=== PATIENT | male | born 1990 | race Two or more races ===

== ENCOUNTER 2024-03-13 02:09 | Inpatient (IN) | payer MEDICAID, OTHER ==
[~2024-03-13] VITALS: Ht 170.2 cm; Wt 111.2 kg
[2024-03-13 07:32] LABS: Basophils # (auto) 0 10 ^3/uL (0-0.2); Basophils % (auto) 0.3 % (0.0-2.0); Eosinophils # (auto) 0.1 10 ^3/uL (0-0.8); Eosinophils % (auto) 1.4 % (0.0-7.0); Hematocrit 45.6 % (41.0-53.0); Hemoglobin 15.6 g/dL (13.5-17.5); Lymphocytes % (auto) 22.9 % (10.0-50.0); Mean Corpuscular Hemoglobin 30.2 pg (28.0-32.0); Mean Corpuscular Hgb Conc. 34.1 g/dL (32.0-36.0); Mean Corpuscular Volume 88.3 fL (80.0-100.0); Monocytes # (auto) 1.1 10 ^3/uL (0-1.3); Neutrophils # (auto) 5.5 10 ^3/uL (1.6-8.6); Neutrophils % (auto) 62.4 % (37.0-80.0); Nucleated Red Blood Cells % 0.1 %; Red Blood Cells 5.17 10^6/uL (4.5-5.90); Red Cell Distribution Width 13.3 % (11.8-14.3); White Blood Cell 8.8 10^3/uL (4.4-10.8)
[2024-03-13 07:35] LABS: Anion Gap 9 (5-15); Carbon Dioxide 26 mmol/L (20-30); Chloride 104 mmol/L (98-107); Potassium 4.4 mmol/L (3.5-5.1); Sodium 139 mmol/L (136-145)
[2024-03-13 07:36] LABS: Calcium 9.5 mg/dL (8.7-10.4)
[2024-03-13 07:41] LABS: BUN/Creatinine Ratio 13.7 (10.0-20.0); Blood Urea Nitrogen 13 mg/dL (9-23); Glucose 118 mg/dL (74-106)
[2024-03-13] MEDS: cefTRIAXone 1GM/50ML D5W 50 ML IV ONE (08:09)
[2024-03-13] MEDS: MORPHINE SULFATE INJ 2 MG/ml SYRG IV ONE (08:10)
[2024-03-13] MEDS: ONDANSETRON HCL 4 MG/2 ML VIAL IV ONE (08:10)
[2024-03-13] MEDS: SODIUM CHLORIDE 0.9% 1,000 ML IV ONE ×2 (08:11→08:12)
[2024-03-13] MEDS: CLINDAMYCIN 600MG IV 50 ML IV ONE (08:12)
[2024-03-13 08:20] VITALS: PULSE 71; RESP 16; O2SAT 97
[2024-03-13] MEDS ORDERED: MORPHINE SULFATE INJ 2 MG/ml SYRG IV PRN (09:00)
[2024-03-13] MEDS ORDERED: DOCUSATE SOD 100 MG CAP PO PRN (09:00)
[2024-03-13] MEDS ORDERED: ONDANSETRON HCL 4 MG/2 ML VIAL IV PRN (09:00)
[2024-03-13] MEDS: DOXYCYCLINE 100MG/250ML 250 ML IV ONE (10:10)
[2024-03-13] MEDS: SODIUM CHLORIDE 0.9% 1,000 ML IV SCH (10:11)
[2024-03-13 14:10] VITALS: BP 96/50; PULSE 49; RESP 20; TEMP 98; O2SAT 94
[2024-03-13 17:00] VITALS: BP 103/53; PULSE 71; RESP 20; TEMP 97.6; O2SAT 94
[2024-03-13 20:00] VITALS: BP 117/66; PULSE 65; PULSE 78; RESP 18; RESP 19; TEMP 97.3; O2SAT 95
[2024-03-13 21:00] VITALS: BP 113/51; PULSE 71; RESP 19; TEMP 97.5; O2SAT 97
[2024-03-13] MEDS: DOXYCYCLINE 100MG/250ML 250 ML IV SCH (21:38)
[2024-03-14 01:00] VITALS: BP 117/66; PULSE 65; RESP 19; TEMP 97.5; O2SAT 95
[2024-03-14 05:00] VITALS: BP 99/65; PULSE 55; RESP 17; TEMP 97.4; O2SAT 100
[2024-03-14 07:07] LABS: Basophils # (auto) 0 10 ^3/uL (0-0.2); Basophils % (auto) 0.3 % (0.0-2.0); Eosinophils # (auto) 0.2 10 ^3/uL (0-0.8); Eosinophils % (auto) 2.7 % (0.0-7.0); Hematocrit 45.5 % (41.0-53.0); Hemoglobin 15.5 g/dL (13.5-17.5); Lymphocytes # (auto) 2.7 10 ^3/uL (0.4-5.4); Lymphocytes % (auto) 36.7 % (10.0-50.0); Mean Corpuscular Volume 88.3 fL (80.0-100.0); Monocytes # (auto) 1.1 10 ^3/uL (0-1.3); Monocytes % (auto) 14.7 % (0.0-12.0); Neutrophils # (auto) 3.4 10 ^3/uL (1.6-8.6); Neutrophils % (auto) 45.6 % (37.0-80.0); Nucleated Red Blood Cells % 0.2 %; Red Blood Cells 5.15 10^6/uL (4.5-5.90); Red Cell Distribution Width 13.4 % (11.8-14.3); White Blood Cell 7.4 10^3/uL (4.4-10.8)
[2024-03-14 07:26] LABS: Alkaline Phosphatase 53 U/L (46-116); Anion Gap 6 (5-15); BUN/Creatinine Ratio 7.6 (10.0-20.0); Blood Urea Nitrogen 7 mg/dL (9-23); Calcium 9.3 mg/dL (8.7-10.4); Carbon Dioxide 28 mmol/L (20-30); Chloride 107 mmol/L (98-107); Glucose 112 mg/dL (74-106); Potassium 4.7 mmol/L (3.5-5.1); Sodium 141 mmol/L (136-145)
[2024-03-14 07:27] LABS: Albumin 4.2 g/dL (3.2-4.8); Aspartate Aminotransferase 16 U/L (13-40)
[2024-03-14 07:28] LABS: Bilirubin, Total 0.4 mg/dL (0.2-1.0); Total Protein 6.9 g/dL (5.7-8.2)
[2024-03-14 07:40] LABS: Alanine Aminotransferase 9 U/L (7-40)
[2024-03-14 08:20] VITALS: BP 117/74; PULSE 62; RESP 18; TEMP 97.8
[2024-03-14 09:00] VITALS: BP 117/74; PULSE 62; RESP 18; TEMP 97.8; O2SAT 97
[2024-03-14 12:00] VITALS: BP 111/60; PULSE 69; RESP 16; TEMP 98.5; O2SAT 96
[2024-03-14] MEDS ORDERED: LEVO500T91 PO (13:19)
[2024-03-14 16:03] VITALS: BP 111/60; PULSE 69; RESP 16; TEMP 98.5; O2SAT 96
== END 2024-03-14 16:32 | disposition home or self-care (01) | DRG 254 ==
LOC: ER 02:09 → OVERFLOW 10:40 → CENTRAL 14:00
PROVIDERS: ADMIT Internal Medicine; ATTEND Internal Medicine
DX: K61.0 Anal abscess (principal); K62.89 Other specified diseases of anus and rectum; L03.317 Cellulitis of buttock; L05.01 Pilonidal cyst with abscess
CPT/HCPCS: 36415; 72192; 74176; 80048; 80053; 85025; 96365; 96367; 96368; 96375; G0378; J2405; J3490

== ENCOUNTER 2025-08-30 16:06 | Emergency (ER) | payer SELFPAY ==
[~2025-08-30] VITALS: Ht 170.2 cm; Wt 109.6 kg
[~2025-08-30 16:06] MED LIST: LEVO500T91 PO
[2025-08-30 17:33] LABS: Hematocrit 47.1 % (41.0-53.0); Hemoglobin 16.2 g/dL (13.5-17.5); Mean Corpuscular Hemoglobin 30.4 pg (28.0-32.0); Mean Corpuscular Volume 88.1 fL (80.0-100.0); Nucleated Red Blood Cells % 0.0 %
--- NOTE | 2025-08-30 17:41 | ED.PDOC ---
History of Present Illness HPI Comments 35-year-old male presents to the ER with the chief complaint of an abscess to the rectum. Patient reports on having the abscess on the left rectum which is painful and the patient is unable to sit due from the pain. Patient notes that the abscess has been reoccurring for the past year, w/ the most recent being three months ago and is always given antibiotics for it. Denies any other symptoms at this time. Chief Complaint: Abscess Time Seen by MD: 17:30 Reviewed Notes: Nurses Notes, Medications, Allergies Allergies: Coded Allergies: NO KNOWN ALLERGIES (Unverified , 03/13/24) Home Meds Active Scripts Levofloxacin Hemihydrate (LEVOFLOXACIN) 500 Mg Tab, 1 TAB PO DAILY, #7 TAB Prov:TRACY SOSA DO 03/14/24 Information Source: Patient Mode of Arrival: Ambulatory Severity: Moderate Timing: Months Duration: Since onset Prehospital treatment: None Past Medical History PAST MEDICAL HISTORY: Denies Past Medical History (Other): Reoccurring rectum abscess Surgical History: Denies all surgeries Family History Family History: Reviewed,noncontributory to illness, Unknown Social History Smoker: Non-Smoker Alcohol: Denies ETOH Use Drugs: Denies Drug Use Lives In: Home Constitutional: denies: chills, diaphoresis, fatigue, fever, malaise, sweats, weakness, others EENTM: denies: blurred vision, double vision, ear bleeding, ear discharge, ear drainage, ear pain, ear ringing, eye pain, eye redness, hearing loss, mouth pain, mouth swelling, nasal discharge, nose bleeding, nose congestion, nose pain, photophobia, tearing, throat pain, throat swelling, voice changes, others Respiratory: denies: cough, hemoptysis, orthopnea, SOB at rest, shortness of breath, SOB with excertion, stridor, wheezing, others Cardiovascular: denies: chest pain, dizzy spells, diaphoresis, Dyspnea on exertion, edema, irregular heart beat, left arm pain, lightheadedness, palpitations, PND, syncope, others Gastrointestinal: denies: abdomen distended, abdominal pain, blood streaked bowels, constipated, diarrhea, dysphagia, difficulty swallowing, hematemesis, melena, nausea, poor appetite, poor fluid intake, rectal bleeding, rectal pain, vomiting, others Genitourinary: denies: burning, dysuria, flank pain, frequency, hematuria, incontinence, penile discharge, penile sore, pain, testicle pain, testicle swelling, urgency, others Neurological: denies: dizziness, fainting, headache, left sided numbness, left sided weakness, numbness, paresthesia, pre-existing deficit, right sided numbness, right sided weakness, seizure, speech problems, tingling, tremors, weakness, others Musculoskeletal: denies: back pain, gout, joint pain, joint swelling, muscle pain, muscle stiffness, neck pain, others Integumetry: reports: others (Rectum abscess); denies: bruises, change in color, change in hair/nails, dryness, laceration, lesions, lumps, rash, wounds Allergic/Immunocompromised: denies: Difficulty Healing, Frequent Infections, Hives, Itching, others Hematologic/Lymphatic: denies: anemia, blood clots, easy bleeding, easy bruising, swollen glands, others Endocrine: denies: excessive hunger, excessive sweating, excessive thirst, excessive urination, flushing, intolerance to cold, intolerance to heat, unexplained weight gain, unexplained weight loss, others Psychiatric: denies: anxiety, bipolar disorder, depression, hopeless, panic disorder, schizophrenia, sleepless, suicidal, others All Other Systems: Reviewed and Negative Physical Exam General Appearance: No Apparent Distress, Normal HEENT: Normal ENT Inspection, Pharynx Normal, TMs Normal Neck: Full Range of Motion, Non-Tender, Normal, Normal Inspection Respiratory: Chest Non-Tender, Lungs Clear, No Accessory Muscle Use, No Respiratory Distress, Normal Breath Sounds Cardiovascular: No Edema, No JVD, No Murmur, No Gallop, Normal Peripheral Pulses, Regular Rate/Rhythm Breast Exam: Deferred Gastrointestinal: No Organomegaly, Non Tender, No Pulsatile Mass, Normal Bowel Sounds, Soft Genitalia: Deferred Pelvic: Deferred Rectal: Other (Tender to palpation over the left side rectum. There is an indurated area with redness.) Extremities: No calf tenderness, Normal capillary refill, Normal inspection, Normal range of motion, Non-tender, No pedal edema Musculoskeletal : Apperance: Normal Neurologic: Alert, wire photo operator II-XII nml as Tested, No Motor Deficits, Normal Affect, Normal Mood, No Sensory Deficits Cerebellar Function: Normal Reflexes: Normal Skin: Dry, Normal Color, Warm Lymphatic: No Adenopathy Was a procedure done? Was a procedure done?: No Differential Dx Considerations may include: Reoccurring rectum abscess X-Ray, Labs, Meds, VS Vital Signs Date Time Temp Pulse Resp B/P (MAP) Pulse Ox O2 Delivery O2 Flow Rate FiO2 08/30/25 16:07 98.3 97 18 117/83 95 98.3 Lab Test 08/30/25 17:22 Range/Units White Blood Count 15.6 H 4.4-10.8 10^3/uL Red Blood Count 5.34 4.5-5.90 10^6/uL Hemoglobin 16.2 13.5-17.5 g/dL Hematocrit 47.1 41.0-53.0 % Mean Corpuscular Volume 88.1 80.0-100.0 fL Mean Corpuscular Hemoglobin 30.4 28.0-32.0 pg Mean Corpuscular Hemoglobin Concent 34.5 32.0-36.0 g/dL Red Cell Distribution Width 13.4 11.8-14.3 % Platelet Count 201 140-450 10^3/uL Mean Platelet Volume 7.9 6.9-10.8 fL Neutrophils (%) (Auto) 67.3 37.0-80.0 % Lymphocytes (%) (Auto) 23.0 10.0-50.0 % Monocytes (%) (Auto) 8.5 0.0-12.0 % Eosinophils (%) (Auto) 0.7 0.0-7.0 % Basophils (%) (Auto) 0.5 0.0-2.0 % Neutrophils # (Auto) 10.5 H 1.6-8.6 10 ^3/uL Lymphocytes # (Auto) 3.6 0.4-5.4 10 ^3/uL Monocytes # (Auto) 1.3 0-1.3 10 ^3/uL Eosinophils # (Auto) 0.1 0-0.8 10 ^3/uL Basophils # (Auto) 0.1 0-0.2 10 ^3/uL Nucleated Red Blood Cells 0.0 % Sodium Level 139 136-145 mmol/L Potassium Level 4.2 3.5-5.1 mmol/L Chloride Level 101 98-107 mmol/L Carbon Dioxide Level 28 20-31 mmol/L Anion Gap 10 5-15 Blood Urea Nitrogen 17 9-23 mg/dL Creatinine 1.15 0.700-1.30 mg/dL Glomerular Filtration Rate Calc 85 >90 mL/min BUN/Creatinine Ratio 14.8 10.0-20.0 Serum Glucose 94 74-106 mg/dL Calcium Level 9.5 8.7-10.4 mg/dL Total Bilirubin 0.6 0.2-1.0 mg/dL Aspartate Amino Transferase (AST) 21 13-40 U/L Alanine Aminotransferase (ALT) 13 7-40 U/L Alkaline Phosphatase 53 46-116 U/L Total Protein 7.9 5.7-8.2 g/dL Albumin 4.7 3.2-4.8 g/dL X-Ray, Labs, Meds, VS Comment CT scan shows perianal abscess extending into the gluteal region. Patient given Rocephin 1 g in office Patient advised he will be started on antibiotics and given 48 hours to see if there is improvement. Advised to continue doing warm compresses. If symptoms have not improved. Return to emergency department for possible admission and further evaluation. Time of 1ST Reevaluation: 18:00 Reevaluation 1ST: Unchanged Patient Education/Counseling: Diagnosis, Treatment, Prognosis, Need For Follow Up (Follow up in 48 hours for wound check) Family Education/Counseling: No Family Present SEPSIS Sepsis Screen Date sepsis recognized/suspect: Aug 30, 2025 Time Sepsis recognized/suspect: 1606 Recent Procedure: No On Antibiotic Therapy: No Respiratory Rate >20: No Heart Rate >90: Yes Temp<36 C (96.8 F) or >38.3 C: No SBP <90 or MAP <65 mmHG: No New Acute Mental Status Change: No Is the patient on CPAP, BIPAP,: No Physician Orders Ct Ab Pel With Iv Con Only (08/30/25 16:58) Urinalysis (08/30/25 16:58) Vital Signs Date Time Temp Pulse Resp B/P (MAP) Pulse Ox O2 Delivery O2 Flow Rate FiO2 08/30/25 16:07 98.3 97 18 117/83 95 98.3 Laboratory Tests Test 08/30/25 17:22 White Blood Count 15.6 10^3/uL (4.4-10.8) H Departure 1 Departure Time of Disposition: 19:52 Impression: Primary Impression: Perianal abscess Disposition: 01 HOME / SELF CARE / HOMELESS Condition: Fair e-Prescriptions Cephalexin Monohydrate (Cephalexin) 500 Mg Cap 1 CAP PO QID for 10 Days, #40 CAP Prov: MIKAL TIAN 08/30/25 Sulfamethoxazole W/Trimethopri (Bactrim Ds Tablet) 1 Tab Tb 1 TAB PO BID for 10 Days, #20 TAB Prov: MIKAL TIAN 08/30/25 Ibuprofen Micronized (Ibuprofen) 800 Mg Tab 800 MG PO TID PRN, #40 TAB Prov: MIKAL TIAN 08/30/25 Discharged With: Self Critical Care Note Critical Care Time?: No Stability Stability form required: No Heart Score Heart Score: Heart Score Response (Comments) Value History N/A 0 EKG N/A 0 Age N/A 0 Risk Factors N/A 0 Troponin N/A 0 Total 0 I personally scribed for MIKAL TIAN ([email or web address]) on 08/30/25 at 17:41. Electronically submitted by Isaiah Rogers ([email or web address]). I personally scribed for MIKAL TIANP ([email or web address]) on 08/30/25 at 18:19. Electronically submitted by Sarah Barrow [email or web address]). MIKAL TIAN Aug 30, 2025 17:41
[2025-08-30 17:55] LABS: Alanine Aminotransferase 13 U/L (7-40); Albumin 4.7 g/dL (3.2-4.8); Alkaline Phosphatase 53 U/L (46-116); Anion Gap 10 (5-15); BUN/Creatinine Ratio 14.8 (10.0-20.0); Bilirubin, Total 0.6 mg/dL (0.2-1.0); Blood Urea Nitrogen 17 mg/dL (9-23); Calcium 9.5 mg/dL (8.7-10.4); Carbon Dioxide 28 mmol/L (20-31); Chloride 101 mmol/L (98-107); Glucose 94 mg/dL (74-106); Potassium 4.2 mmol/L (3.5-5.1); Sodium 139 mmol/L (136-145); Total Protein 7.9 g/dL (5.7-8.2)
--- NOTE | 2025-08-30 19:37 | DVH ---
Exam: CT CT AB PEL WITH IV CON ONLY History: rectal abscess. Pain and swelling. COMPARISON: CT PELVIS WO CONTRAST on DOS: 03/13/24, CT CT AB PEL WO CON-NO ORAL OR IV on DOS: 03/13/24 Technique: Multidetector spiral CT of the abdomen and pelvis was performed from lung bases to pubic s ymphysis. Intravenous contrast was administered during this examination. Portal venous imaging was o btained. Axial, coronal and sagittal multiplanar reformats were performed by the technologist on a [employer] workstation. Radiation Dose : 1. Abdomen/Pelvis: CTDIvol 22.71mGy, DLP 1533.79 mGy*cm. CONTRAST: Type of contrast: Omnipaque 350 Contrast injected: 100 ml Findings: Lung Bases: No acute or significant lung base finding. Normal heart size. No pleural or pericardial effusion. Liver: The liver is normal in size. No focal lesions. Normal hepatic vascular enhancement. Gallbladder and Biliary Tree: Unremarkable Spleen: Unremarkable Pancreas: The pancreas is normal in appearance without focal lesions or abnormal enhancement. Adrenal Glands: Unremarkable Kidneys: No hydronephrosis. Bladder: Unremarkable Bowel: Low left perianal rim enhancing fluid collection measuring 3.3 x 1.2 cm in the axial plane ext ending over a craniocaudal distance of 3.7 cm. This extends from the lower most anal canal towards th e left gluteal cleft lines superficially. Ascites: Absent Lymphadenopathy: No mesenteric, retroperitoneal or periportal lymphadenopathy. Abdominal Wall and Mesentery: Unremarkable. Vasculature: The visualized abdominal aorta is normal in size and caliber. Abdominal and pelvic vess els demonstrate normal enhancement. Pelvic Organs: Unremarkable Musculoskeletal: No aggressive focal bony lesions, acute fractures or dislocation. IMPRESSION: Low left perianal abscess that appears quite superficial relative to the gluteal cleft. Radiation optimization: All CT scans at this facility use at least one of these dose optimization ministerio hniques: automated exposure control mA and/or kV adjustment per patient size (includes targeted exam s where dose is matched to clinical indication) or iterative reconstruction.
[2025-08-30] MEDS ORDERED: CEPH500C PO (19:54)
[2025-08-30] MEDS ORDERED: BACDST PO (19:54)
[2025-08-30] MEDS ORDERED: IBUP-1455 PO (19:54)
[2025-08-30] MEDS: IOHEXOL 300 MG/ML 100ML BOTTLE IJ ONE (20:26)
[2025-08-30 20:30] VITALS: BP 129/91; PULSE 96; RESP 16; TEMP 98.8; O2SAT 100
== END 2025-08-30 20:38 | disposition home or self-care (01) ==
LOC: ER 16:06
DX: L02.215 Cutaneous abscess of perineum (principal); K61.2 Anorectal abscess
CPT/HCPCS: 36415; 74177; 80053; 85025; 99285; Q9967